=== PATIENT | female | born 1995 | race African-American/Black ===

== ENCOUNTER 2022-11-17 09:37 | Emergency (ER) | payer OTHER ==
[~2022-11-17] VITALS: Ht 162.6 cm; Wt 100.2 kg
[2022-11-17] MEDS ORDERED: PROGESTERONE200 MG PO (10:04)
[2022-11-17] MEDS ORDERED: PRENA1 TRUE CO1 EACH (10:05)
== END 2022-11-17 13:04 | disposition home or self-care (01) ==
LOC: ER 09:37
DX: O26.891 Other specified pregnancy related conditions, first trimester (principal); Z3A.01 Less than 8 weeks gestation of pregnancy; R10.2 Pelvic and perineal pain

== ENCOUNTER 2023-03-09 15:48 | Emergency (ER) | payer OTHER ==
[~2023-03-09] VITALS: Ht 162.6 cm; Wt 96.2 kg
[~2023-03-09 15:48] MED LIST: PRENA1 TRUE CO1 EACH; PROGESTERONE200 MG PO
== END 2023-03-09 18:54 | disposition home or self-care (01) ==
LOC: ER 15:48
DX: O26.891 Other specified pregnancy related conditions, first trimester (principal); Z3A.01 Less than 8 weeks gestation of pregnancy; R10.2 Pelvic and perineal pain

== ENCOUNTER 2023-03-14 10:05 | Emergency (ER) | payer OTHER ==
[~2023-03-14] VITALS: Ht 162.6 cm; Wt 97.1 kg
== END 2023-03-14 15:35 | disposition home or self-care (01) ==
LOC: ER 10:05
DX: O20.9 Hemorrhage in early pregnancy, unspecified (principal); Z3A.08 8 weeks gestation of pregnancy

== ENCOUNTER 2023-04-21 13:01 | Emergency (ER) | payer OTHER ==
[~2023-04-21] VITALS: Ht 162.6 cm; Wt 96.6 kg
== END 2023-04-21 18:00 | disposition home or self-care (01) ==
LOC: ER 13:01
DX: R11.0 Nausea (principal)

== ENCOUNTER 2023-08-31 09:42 | Emergency (ER) | payer OTHER ==
[~2023-08-31] VITALS: Ht 162.6 cm; Wt 96.6 kg
[2023-08-31 11:01] LABS: HEMATOCRIT 42.1 % (36.0-45.00); HEMOGLOBIN 14.4 g/dL (12.0-15.00); MEAN CELL VOLUME 91.6 fL (80.00-100.00); MEAN CORPUSCULAR HEMOGLOBIN 31.4 pg (27.00-32.0); MEAN CORPUSCULAR HGB CONC 34.3 g/dl (32.0-36.0); PLATELET COUNT 298 K/uL (150-450); RED CELL DISTRIBUTION WIDTH 14.4 % (11.5-14.5)
[2023-08-31 12:19] LABS: URINE APPEARANCE Clear; URINE BILIRRUBIN Negative (NEGATIVE); URINE BLOOD Negative; URINE COLOR Yellow; URINE GLUCOSE Negative (NEGATIVE); URINE LEUKOCYTE Trace; URINE NITRATE Negative; URINE PROTEIN Negative (NEGATIVE); URINE UROBILINOGEN 0.2 E.U./dl
[2023-08-31 12:23] LABS: URINE BACTERIA 696.7 uL (0.0-1933); URINE EPITHELIAL CELLS 66.3 uL (0.0-38.8); URINE WBC 17.4 uL (0.0-23.2)
[2023-08-31 12:57] LABS: URINE RBC 1.5 uL (0.0-20.8)
== END 2023-08-31 13:18 | disposition home or self-care (01) ==
LOC: ER 09:42
PROVIDERS: Emergency Medicine
DX: O20.9 Hemorrhage in early pregnancy, unspecified (principal); Z3A.01 Less than 8 weeks gestation of pregnancy

== ENCOUNTER 2023-09-19 08:11 | Emergency (ER) | payer OTHER ==
[~2023-09-19] VITALS: Ht 162.6 cm; Wt 97.5 kg
[2023-09-19] MEDS ORDERED: PRENA1 TRUE CO1 EACH PO (09:06)
[2023-09-19 10:01] LABS: HEMATOCRIT 38.6 % (36.0-45.00); HEMOGLOBIN 13.1 g/dL (12.0-15.00); MEAN CELL VOLUME 89.7 fL (80.00-100.00); MEAN CORPUSCULAR HEMOGLOBIN 30.5 pg (27.00-32.0); MEAN CORPUSCULAR HGB CONC 34.1 g/dl (32.0-36.0); PLATELET COUNT 260 K/uL (150-450); RED BLOOD COUNT 4.31 M/uL (4.00-6.00); RED CELL DISTRIBUTION WIDTH 14.5 % (11.5-14.5)
[2023-09-19 10:45] LABS: ALBUMIN 3.3 gm/dL (3.4-5.0); BILIRUBIN TOTAL 0.56 mg/dL (0.3-1.2); CALCIUM 9.1 mg/dL (8.5-10.1); CREATININE SERUM 0.62 mg/dL (0.55-1.02); GFR 113.02; GLOBULINA 3.9 G/DL (2.4-3.5); POTASSIUM 3.22 mEq/L (3.5-5.1); TOTAL PROTEIN 7.2 gm/dL (6.4-8.2)
== END 2023-09-19 12:11 | disposition home or self-care (01) ==
LOC: ER 08:12
PROVIDERS: General Practice
DX: O26.891 Other specified pregnancy related conditions, first trimester (principal); B34.9 Viral infection, unspecified; Z3A.01 Less than 8 weeks gestation of pregnancy

== ENCOUNTER 2023-09-25 18:27 | Emergency (ER) | payer OTHER ==
[~2023-09-25] VITALS: Ht 162.6 cm; Wt 97.5 kg
[~2023-09-25 18:27] MED LIST changes: +PRENA1 TRUE CO1 EACH PO
[2023-09-25 20:06] LABS: HEMATOCRIT 40.4 % (36.0-45.00); HEMOGLOBIN 13.8 g/dL (12.0-15.00); MEAN CELL VOLUME 90.6 fL (80.00-100.00); MEAN CORPUSCULAR HGB CONC 34.2 g/dl (32.0-36.0); PLATELET COUNT 238 K/uL (150-450); RED BLOOD COUNT 4.45 M/uL (4.00-6.00)
[2023-09-25 20:52] LABS: CALCIUM 9.3 mg/dL (8.5-10.1); CREATININE SERUM 0.6 mg/dL (0.55-1.02); GFR 117.38; POTASSIUM 4.02 mEq/L (3.5-5.1)
[2023-09-25 20:56] LABS: PH,URINE 7.5 (5.0-8.0); URINE APPEARANCE Clear; URINE BILIRRUBIN Negative (NEGATIVE); URINE BLOOD Negative; URINE COLOR Yellow; URINE GLUCOSE Negative (NEGATIVE); URINE LEUKOCYTE Negative; URINE NITRATE Negative; URINE PROTEIN Negative (NEGATIVE)
[2023-09-25 20:57] LABS: URINE EPITHELIAL CELLS 19.3 uL (0.0-38.8); URINE WBC 3.8 uL (0.0-23.2)
[2023-09-25 21:01] LABS: URINE RBC 1.4 uL (0.0-20.8)
[2023-09-25] MEDS ORDERED: COLACE100 MG PO (22:10)
[2023-09-25] MEDS ORDERED: PROMETHEGAN25 MG RECTAL (22:10)
== END 2023-09-25 22:29 | disposition home or self-care (01) ==
LOC: ER 18:28
PROVIDERS: Nurse Practitioner Family
DX: O26.891 Other specified pregnancy related conditions, first trimester (principal); Z3A.01 Less than 8 weeks gestation of pregnancy; O46.8X1 Other antepartum hemorrhage, first trimester; O21.9 Vomiting of pregnancy, unspecified

== ENCOUNTER 2023-10-09 08:01 | Emergency (ER) | payer OTHER ==
[~2023-10-09] VITALS: Ht 162.6 cm; Wt 98.4 kg
[~2023-10-09 08:01] MED LIST changes: +COLACE100 MG PO; +PROMETHEGAN25 MG RECTAL
[2023-10-09 10:10] LABS: HEMATOCRIT 37.1 % (36.0-45.00); HEMOGLOBIN 12.8 g/dL (12.0-15.00); MEAN CELL VOLUME 90.9 fL (80.00-100.00); MEAN CORPUSCULAR HEMOGLOBIN 31.3 pg (27.00-32.0); MEAN CORPUSCULAR HGB CONC 34.5 g/dl (32.0-36.0); PLATELET COUNT 262 K/uL (150-450); RED BLOOD COUNT 4.08 M/uL (4.00-6.00); RED CELL DISTRIBUTION WIDTH 13.7 % (11.5-14.5)
[2023-10-09 10:51] LABS: ALBUMIN 3.2 gm/dL (3.4-5.0); BILIRUBIN TOTAL 0.52 mg/dL (0.3-1.2); CALCIUM 9.1 mg/dL (8.5-10.1); CREATININE SERUM 0.5 mg/dL (0.55-1.02); GFR 144.87; GLOBULINA 3.7 G/DL (2.4-3.5); POTASSIUM 4.14 mEq/L (3.5-5.1); TOTAL PROTEIN 6.9 gm/dL (6.4-8.2)
[2023-10-09 11:02] LABS: PH,URINE 7.5 (5.0-8.0); URINE APPEARANCE Clear; URINE BILIRRUBIN Negative (NEGATIVE); URINE BLOOD Negative; URINE COLOR Yellow; URINE GLUCOSE Negative (NEGATIVE); URINE LEUKOCYTE Negative; URINE NITRATE Negative; URINE PROTEIN Negative (NEGATIVE)
[2023-10-09 11:08] LABS: URINE BACTERIA 135.9 uL (0.0-1933); URINE WBC 2.6 uL (0.0-23.2)
[2023-10-09 11:12] LABS: URINE RBC 0.2 uL (0.0-20.8)
== END 2023-10-09 14:44 | disposition home or self-care (01) ==
LOC: ER 08:02
PROVIDERS: General Practice
DX: O20.9 Hemorrhage in early pregnancy, unspecified (principal); Z3A.10 10 weeks gestation of pregnancy

== ENCOUNTER 2024-01-08 14:16 | Outpatient (CLI) | payer OTHER ==
[~2024-01-08] VITALS: Ht 162.6 cm; Wt 97.1 kg
[2024-01-08] MEDS ORDERED: TERBUTALINE SULFATE 1 MG/ML AMPUL ONE (14:27)
[2024-01-08] MEDS ORDERED: ADULT LOW DOSE81 M1 PO (14:47)
[2024-01-08] MEDS ORDERED: ZOFRAN8 MG PO (14:48)
[2024-01-08 15:28] LABS: HEMATOCRIT 35.3 % (36.0-45.00); HEMOGLOBIN 11.9 g/dL (12.0-15.00); MEAN CELL VOLUME 90.7 fL (80.00-100.00); MEAN CORPUSCULAR HEMOGLOBIN 30.6 pg (27.00-32.0); MEAN CORPUSCULAR HGB CONC 33.8 g/dl (32.0-36.0); PH,URINE 6.5 (5.0-8.0); PLATELET COUNT 261 K/uL (150-450); RED BLOOD COUNT 3.89 M/uL (4.00-6.00); RED CELL DISTRIBUTION WIDTH 14.7 % (11.5-14.5); URINE APPEARANCE Cloudy; URINE BILIRRUBIN Negative (NEGATIVE); URINE BLOOD Negative; URINE COLOR Yellow; URINE GLUCOSE Negative (NEGATIVE); URINE LEUKOCYTE Negative; URINE NITRATE Negative; URINE PROTEIN Negative (NEGATIVE)
[2024-01-08] MEDS ORDERED: TERBUTALINE SULFATE 1 MG/ML AMPUL SUBCUTANEO ONE (15:30)
[2024-01-08] MEDS ORDERED: RINGERS SOLUTION,LACTATED 1,000 ML IV SCH (15:30)
[2024-01-08 15:31] LABS: URINE BACTERIA 532.7 uL (0.0-1933); URINE EPITHELIAL CELLS 9.2 uL (0.0-38.8)
[2024-01-08 15:51] LABS: ALBUMIN 2.9 gm/dL (3.4-5.0); BILIRUBIN TOTAL 0.38 mg/dL (0.3-1.2); CALCIUM 9.5 mg/dL (8.5-10.1); CREATININE SERUM 0.54 mg/dL (0.55-1.02); GFR 132.56; GLOBULINA 3.7 G/DL (2.4-3.5); POTASSIUM 3.89 mEq/L (3.5-5.1); TOTAL PROTEIN 6.6 gm/dL (6.4-8.2)
== END 2024-01-09 10:36 | disposition home or self-care (01) ==
LOC: OBS/DEL 14:16
PROVIDERS: ATTEND Specialist
DX: O26.892 Other specified pregnancy related conditions, second trimester (principal); Z3A.23 23 weeks gestation of pregnancy; O44.00 Complete placenta previa NOS or without hemorrhage, unspecified trimester; O99.210 Obesity complicating pregnancy, unspecified trimester; O35.3XX0 Maternal care for (suspected) damage to fetus from viral disease in mother, not applicable or unspecified

== ENCOUNTER 2024-04-16 17:58 | Outpatient (CLI) | payer OTHER ==
[~2024-04-16 17:58] MED LIST changes: +ADULT LOW DOSE81 M1 PO; +CEPHALEXIN500 M1 PO; +INTEGRA CAPSUL1 EACH PO; +ZOFRAN8 MG PO
== END 2024-04-16 18:01 | disposition home or self-care (01) ==
LOC: NST 17:58
PROVIDERS: ATTEND Specialist
DX: Z34.83 Encounter for supervision of other normal pregnancy, third trimester (principal)

== ENCOUNTER 2024-04-23 09:50 | Inpatient (IN) | payer OTHER ==
[~2024-04-23] VITALS: Ht 162.6 cm; Wt 3.2 kg
[2024-04-23 10:41] LABS: PH,URINE 7.5 (5.0-8.0); URINE APPEARANCE Clear; URINE BILIRRUBIN Negative (NEGATIVE); URINE BLOOD Negative; URINE COLOR Yellow; URINE GLUCOSE Negative (NEGATIVE); URINE KETONE Negative (NEGATIVE); URINE LEUKOCYTE Negative; URINE NITRATE Negative; URINE PROTEIN Negative (NEGATIVE)
[2024-04-23 10:42] LABS: URINE BACTERIA 1021.8 uL (0.0-1933); URINE EPITHELIAL CELLS 7.7 uL (0.0-38.8); URINE WBC 12.3 uL (0.0-23.2)
[2024-04-23 10:54] LABS: HEMATOCRIT 38.8 % (36.0-45.00); HEMOGLOBIN 13.3 g/dL (12.0-15.00); MEAN CELL VOLUME 90.2 fL (80.00-100.00); MEAN CORPUSCULAR HEMOGLOBIN 30.8 pg (27.00-32.0); MEAN CORPUSCULAR HGB CONC 34.2 g/dl (32.0-36.0); PLATELET COUNT 249 K/uL (150-450); RED CELL DISTRIBUTION WIDTH 17.9 % (11.5-14.5)
[2024-04-23 11:12] LABS: URINE RBC 1.8 uL (0.0-20.8)
[2024-04-23 11:16] LABS: INR < 0.93; PARTIAL THROMBOPLASTIN TIME 23.9 SECONDS (22.0-34.0); PROTHROMBIN TIME 8.7 SECONDS (9.0-11.5)
[2024-04-23 11:31] LABS: BILIRUBIN TOTAL 0.59 mg/dL (0.3-1.2); CALCIUM 9.2 mg/dL (8.5-10.1); CREATININE SERUM 0.45 mg/dL (0.55-1.02); GFR 163.6; GLOBULINA 4.1 G/DL (2.4-3.5); POTASSIUM 4.27 mEq/L (3.5-5.1); TOTAL PROTEIN 7.1 gm/dL (6.4-8.2)
[2024-04-29] MEDS ORDERED: OXYTOCIN 10 UNITS/ML VIAL ONE (17:37)
[2024-04-29] MEDS ORDERED: ERYTHROMYCIN BASE 1 GM TUBE OP ONE (17:37)
[2024-04-29] MEDS ORDERED: MEPERIDINE HCL/PF 50 MG/ML VIAL IV SCH (19:45)
[2024-04-29] MEDS ORDERED: PROMETHAZINE HCL 50 MG/ML AMPUL IM SCH (19:45)
[2024-04-29] MEDS ORDERED: KETOROLAC TROMETHAMINE 60 MG VIAL IM ONE (19:45)
[2024-04-29 23:09] LABS: HEMATOCRIT 37.7 % (36.0-45.00); HEMOGLOBIN 12.8 g/dL (12.0-15.00); MEAN CELL VOLUME 91.5 fL (80.00-100.00); MEAN CORPUSCULAR HGB CONC 33.9 g/dl (32.0-36.0); PLATELET COUNT 238 K/uL (150-450); RED BLOOD COUNT 4.12 M/uL (4.00-6.00); RED CELL DISTRIBUTION WIDTH 18.1 % (11.5-14.5)
[2024-04-29 23:11] LABS: ABG PH 7.395 (7.35-7.45); ABG PO2 52.8 mmHg (80-100); ABG pCO2 37.3 mmHg (35-45)
[2024-04-29 23:12] LABS: SaO2 86.5 %
[2024-04-29 23:13] LABS: BASE EXCESS -2.1 mmol/l; BICARBONATE 22.3 mmol/l (23-25); Tco2 23.4 mmol/l; o2 21 %
[2024-04-30] MEDS ORDERED: OxyCODONE HCL/APAP UD (PERCOCET) PO SCH (08:00)
[2024-04-30] MEDS ORDERED: SIMETHICONE 125 MG CAPSULE PO SCH (09:00)
[2024-04-30] MEDS ORDERED: DOCUSATE CALCIUM 240 MG CAPSULE PO SCH (09:00)
[2024-05-01] MEDS ORDERED: SIMETHICONE125 M1 PO (10:02)
[2024-05-01] MEDS ORDERED: IBU800 MG PO (10:02)
[2024-05-01] MEDS ORDERED: COLACE100 MG PO (10:03)
== END 2024-05-01 13:07 | disposition home or self-care (01) | DRG 785 ==
LOC: OB/GYN 04-29 10:45 → O/R 04-29 15:14 → OB/GYN 04-29 20:35
PROVIDERS: ADMIT Specialist; ATTEND Specialist
PROC: 0UB70ZZ Excision of Bilateral Fallopian Tubes, Open Approach (ICD-10-PCS; 2024-04-29)
PROC: 4A1HXCZ Monitoring of Products of Conception, Cardiac Rate, External Approach (ICD-10-PCS; 2024-04-29)
PROC: 10D00Z1 Extraction of Products of Conception, Low, Open Approach (ICD-10-PCS; principal; 2024-04-29 13:45)
DX: O34.211 Maternal care for low transverse scar from previous cesarean delivery (principal); Z3A.39 39 weeks gestation of pregnancy; Z37.0 Single live birth; Z30.2 Encounter for sterilization; Z20.822 Contact with and (suspected) exposure to COVID-19